=== PATIENT | female | born 1970 | race Caucasian/White ===

== ENCOUNTER 2025-03-24 06:22 | Day surgery (SDC) | payer OTHER, SELFPAY | END 2025-03-24 09:11 | disposition home or self-care (01) | LOC: GI 06:22 | PROVIDERS: ATTENDING PHYSICIAN Internal Medicine | DX: Z12.11 Encounter for screening for malignant neoplasm of colon (principal); Z85.048 Personal history of other malignant neoplasm of rectum, rectosigmoid junction, and anus; Z15.01 Genetic susceptibility to malignant neoplasm of breast | CPT/HCPCS: G0105 ==